=== PATIENT | male | born 1970 | race Caucasian/White ===

== ENCOUNTER 2017-04-28 20:20 | Emergency (ER) | payer OTHER ==
[2017-04-28 20:35] VITALS: BP 133/84
[2017-04-28] MEDS ORDERED: cefTRIAXone VIAL(*) 1,000 MG VIAL IM ONE (20:55)
[2017-04-28] MEDS ORDERED: Lidocaine 1% MPF* 2 ML VIAL ONE (21:01)
--- NOTE | 2017-04-28 21:01 | UC ---
Skin Complaint HPI - HPI Summary HPI Summary: pt presents with c/o of right lower leg tenderness, erythema and swelling. Pt has history of "chronic" cellulitis X 5 years. Pt states that he has "flare ups ' of cellulitis and states he is having one now. - History of Current Complaint Chief Complaint: UCLowerExtremity Time Seen by Provider: 04/28/17 20:45 Stated Complaint: RIGHT LEG COMPLAINT Hx Obtained From: Patient Onset/Duration: Gradual Onset, Lasting Weeks - 4-5 weeks Skin Exposure Onset/Duration: Weeks Ago - 4-5 weeks Timing: Constant Onset Severity: Mild Current Severity: Moderate Location: Discrete - right lower leg, below knee, Character: Swelling, Redness, Painful Aggravating: Touch Alleviating: Other - antibiotics Associated Signs & Symptoms: Positive: Tenderness - Allergy/Home Medications Allergies/Adverse Reactions: Allergies Allergy/AdvReac Type Severity Reaction Status Date / Time No Known Allergies Allergy Verified 04/28/17 20:36 Home Medications: Home Medications Aspirin [Aspirin 81 MG TAB] 81 mg PO BEDTIME 04/28/17 [History Confirmed ] Omeprazole CAP* [Prilosec CAP* 20 MG] 20 mg PO BEDTIME 04/28/17 [History Confirmed 04/28/17] Review of Systems Constitutional: Negative Skin: Other - erythema, tenderness, swelling Eyes: Negative ENT: Negative Respiratory: Negative Cardiovascular: Negative Gastrointestinal: Negative Genitourinary: Negative Motor: Other - tenderness with ambulation, generalized, Neurovascular: Negative Musculoskeletal: Edema - right lower leg. non pitting, Neurological: Negative Psychological: Negative All Other Systems Reviewed And Are Negative: Yes PMH/Surg Hx/FS Hx/Imm Hx Previously Healthy: Yes - Surgical History Surgical History: Yes Surgery Procedure, Year, and Place: BOIL REMOVAL EARLY ; FEBRUARY 2015- LEFT WRIST PROXIMAL ROW CARPECTOMY- SCAPHOID, LUNATE & TRIQUETRUM WERE SURGICALLY REMOVED - Family History Known Family History: Positive: Cardiac Disease - Social History Lives: With Family Alcohol Use: Weekly Alcohol Amount: 1/WEEK Substance Use Type: None Smoking Status (MU): Never Smoked Tobacco Physical Exam Triage Information Reviewed: Yes Appearance: Well-Appearing Vital Signs: Initial Vital Signs Temp 98.6 F 04/28/17 20:28 Pulse 104 04/28/17 20:28 Resp 18 07/03/17 20:28 BP 133/84 04/28/17 20:28 Pulse Ox 97 04/28/17 20:28 Eye Exam: Normal Neck exam: Normal Respiratory Exam: Normal Respiratory: Positive: No respiratory distress Musculoskeletal Exam: Other Musculoskeletal: Positive: Edema @ - right lower extremity, below knee, generalized erythema, non streaking, right lower leg measure 18. inches, Left lower leg, measured 16.5 inches Neurological Exam: Normal Psychological Exam: Normal Skin Exam: Other - erythema, right lower extremity, below knee, generalized, Course/Dx - Course Course Of Treatment: I discussed with the pt the need to monitor for any worsening symptoms including but not limited to erythema, tenderness, edema, fever, chills, weeping and if the symptoms wrosen in the next 24-48 hours then the pt must seek care at the closest healthcare facility as he has failed outpatient therapy. Pt verbalized understanding and agreedt o plan of care. - Differential Diagnoses - Skin Complaint Differential Diagnoses: Cellulitis, Other - DVT - Diagnoses Provider Diagnoses: cellulitis Discharge - Discharge Plan Condition: Stable Disposition: HOME Prescriptions: Cephalexin CAP* [Keflex 500 CAP*] 500 mg PO QID #40 cap Patient Education Materials: Cellulitis (ED) Referrals: Jaylyn Stanton MD [Primary Care Provider] - 2 Days Additional Instructions: Please monitor your symptoms for worsening of infection in the next 24-48 hours. If you have any worsening of symptoms you are to seek medical care immediately at the closest Emergency Room.
== END 2017-04-28 21:33 | disposition home or self-care (01) ==
LOC: UCCORT 20:20
DX: L03.115 Cellulitis of right lower limb (principal)
CPT/HCPCS: 96372; 99212; G0463; J0696

== ENCOUNTER 2017-06-16 12:32 | Emergency (ER) | payer OTHER ==
[2017-06-16 12:40] VITALS: BP 143/70
--- NOTE | 2017-06-16 13:19 | UC ---
Truncal Trauma HPI - HPI Summary HPI Summary: This is a 47 yo gentleman with HTN who presented with c/o L rib pain. 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 He did not lose consciousness or hit his head. He has had persistent pain since the injury. No SOB. No cough. - History Of Current Complaint Chief Complaint: UCChestPain Stated Complaint: LEFT RIB PAIN - Allergies/Home Medications Allergies/Adverse Reactions: Allergies Allergy/AdvReac Type Severity Reaction Status Date / Time No Known Allergies Allergy Verified 06/16/17 12:40 PMH/Surg Hx/FS Hx/Imm Hx Previously Healthy: No Cardiovascular History: Hypertension - Surgical History Surgical History: Yes Surgery Procedure, Year, and Place: BOIL REMOVAL EARLY . FEBRUARY 2015- LEFT WRIST (PROXIMAL ROW CARPECTOMY- SCAPHOID, LUNATE & TRIQUETRUM WERE SURGICALLY REMOVED). April 2017 - Right wrist pinning - Family History Known Family History: Positive: Cardiac Disease - Social History Alcohol Use: Weekly Alcohol Amount: 1/WEEK Substance Use Type: None Smoking Status (MU): Never Smoked Tobacco Review of Systems Constitutional: Negative Skin: Negative Eyes: Negative ENT: Negative Respiratory: Negative Cardiovascular: Negative Gastrointestinal: Negative Genitourinary: Negative Motor: Negative Neurovascular: Negative Musculoskeletal: Arthralgia Neurological: Negative Psychological: Negative All Other Systems Reviewed And Are Negative: Yes Physical Exam Triage Information Reviewed: Yes Appearance: Well-Appearing Vital Signs: Initial Vital Signs Temp 98.5 F 06/16/17 12:36 Pulse 99 06/16/17 12:36 Resp 16 06/16/17 12:36 BP 143/70 06/16/17 12:36 Pulse Ox 97 06/16/17 12:36 Vital Signs Reviewed: Yes Neck: Positive: Supple, Nontender, No Lymphadenopathy Respiratory: Positive: Lungs clear, Normal breath sounds. Negative: Chest non- tender - TTP along anterior axillary line near 9th rib Diagnostics - Laboratory Diagnostic Studies Completed/Ordered: XR chest and ribs - Non-displaced lateral 8th rib fx, no pneumothorax Truncal Trauma Course/Dx - Course Course Of Treatment: This is a 47 yo male with multiple medical problems who presented with c/o L rib pain after an injury 4 days ago. XR demonstrates non- displaced 8th rib fx - Differential Dx/Diagnosis Differential Diagnosis/HQI/PQRI: Chest Wall Contusion, Pneumothorax, Rib Fracture Provider Diagnoses: 1. Non-displaced rib fracture, L 8th Discharge - Discharge Plan Condition: Stable Disposition: HOME Prescriptions: oxyCODONE/Acetamin 10/325(NF) [Percocet 10/325 (NF)] 1 tab PO Q6H PRN #20 tab MDD 4 tabs PRN Reason: Pain Patient Education Materials: Rib Fracture (ED) Referrals: Salome Rosales PA [Primary Care Provider] - If Needed Additional Instructions: Activity: Avoid heavy lifting Instructions: 1. Use pain medication as directed, do not drive, consume alcohol or operate other heavy machinery with the medication 2. Expect the pain to last for several weeks
--- NOTE | 2017-06-16 13:59 | RAD ---
Indication: LEFT anterior axillary line ninth rib level pain following injury 4 days ago. Comparison: No relevant prior exams available on the [facility] for comparison. Technique: PA chest and 3 view LEFT unilateral rib series obtained. Report: Clear lungs and pleural spaces. Negative for pneumothorax. The heart, pulmonary vasculature, and mediastinal contours are unremarkable. Suggestion of a nondisplaced fracture at the anterolateral LEFT eighth rib corresponding with the general region of clinical concern. No additional rib fractures evident. IMPRESSION: Suggestion of nondisplaced fracture at the anterolateral segment of the LEFT eighth rib. Negative for pleural effusion or pneumothorax.
== END 2017-06-16 14:29 | disposition home or self-care (01) ==
LOC: UCCORT 12:32
DX: S22.32XA Fracture of one rib, left side, initial encounter for closed fracture (principal); W01.198A Fall on same level from slipping, tripping and stumbling with subsequent striking against other object, initial encounter; Y93.9 Activity, unspecified; Y92.89 Other specified places as the place of occurrence of the external cause; I10 Essential (primary) hypertension
CPT/HCPCS: 99211; G0463

== ENCOUNTER 2018-04-06 05:59 | Day surgery (SDC) | payer BC ==
[2018-04-06] MEDS ORDERED: Buffered Lidocaine 0.9% SYRIN* 5 ML/SYR SYRINGE INTRADERM ONE (06:00)
[2018-04-06] MEDS ORDERED: Dexamethasone IV* 4 MG/ML 1 ML (4 MG) IV SLOW PU ONE (06:00)
[2018-04-06] MEDS ORDERED: Famotidine IV* 10 MG/ML 2 ML (20 mg) IV ONE (06:00)
[2018-04-06] MEDS ORDERED: Dexamethasone IV* 4 MG/ML 1 ML (4 MG) ONE (06:04)
[2018-04-06] MEDS ORDERED: Famotidine IV* 10 MG/ML 2 ML (20 mg) ONE (06:04)
[2018-04-06] MEDS ORDERED: fentaNYL* 50 MCG/ML 2 ML VIAL (100 MCG VIAL) IV PRN (07:08)
[2018-04-06] MEDS ORDERED: Naloxone* 0.4 MG/ML 1 ML VIAL IV PRN (07:08)
[2018-04-06] MEDS ORDERED: Ondansetron ODT TAB* 4 MG PO PRN (07:08)
[2018-04-06] MEDS ORDERED: HYDROmorphone INJ* 1 MG/ML CARPUJECT SYRINGE IV PRN (07:08)
[2018-04-06] MEDS ORDERED: KETAMINE HCL* 50 MG/ML 10 ML VIAL ONE (07:22)
[2018-04-06] MEDS ORDERED: fentaNYL* 50 MCG/ML 2 ML VIAL (100 MCG VIAL) ONE ×2 (07:22→08:26)
[2018-04-06] MEDS ORDERED: Midazolam* 1 MG/ML 2 ML VIAL (2 MG) ONE (07:23)
[2018-04-06] MEDS ORDERED: Phenylephrine INJ* 10 MG/ML 1 ML VIAL (10 MG) ONE (07:49)
[2018-04-06] MEDS ORDERED: Bupivacaine 0.25% SDV* 30 ML ONE (08:26)
[2018-04-06 09:33] VITALS: BP 129/71
--- NOTE | 2018-04-06 17:11 | OP ---
DATE OF OPERATION: 04/06/18 - [facility] DATE OF : 66 SURGEON: Luis Nicolas MD. TECHNICAL SERVICES MANAGER: KATALINA Alexander ANESTHESIOLOGIST: Dr. Castaneda. ANESTHESIA: General. 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 OPERATIVE PROCEDURE: Arthrotomy of right wrist for synovial soft tissue cultures as well as distal radius and capitate bone cultures and specimens for permanent pathology. INDICATIONS: JoseM iguel has had the aforementioned surgeries. Unfortunately, the wrist has rapidly degenerated. He needs a wrist fusion to get him out of pain; however, I want to make sure that it is not infected prior to doing the wrist fusion surgery. I think it is a definite possibility given the fact that he has had such rapid degeneration and he has a PRC on the left that has done well for many years. He understood the risks and benefits, he wants to proceed. ESTIMATED BLOOD LOSS: 2 mL. COMPLICATIONS: None. FINDINGS: See above and below. DESCRIPTION OF PROCEDURE: Jose Miguel was seen in the preoperative holding area. The correct site, side, and procedure were identified. We came back to the operating room, the arm was prepped and draped in the usual fashion. A time- out was performed. The arm was exsanguinated with the Esmarch and the tourniquet inflated to 275 mmHg. I reopened his dorsal incision, full-thickness flaps were raised off the extensor retinaculum. The retinaculum was incised. The fourth dorsal compartment tendons were retracted ulnarly and a longitudinal arthrotomy was made. Abundant synovial tissue immediately protruded. This was excised and sent off as a specimen. I then took the curette and obtained bone cultures from the distal radius and then from the proximal pole of the capitate. I also sent specimens for permanent pathology. The cultures were sent for aerobic, anaerobic, fungal, and mycobacterial. The arthrotomy was then closed with 4-0 Prolene suture. The retinaculum was closed with 4-0 Prolene suture. The EPL tendon was already transposed. Skin was closed with 4-0 nylon suture. A short- arm splint was applied. He was woken up and taken to the recovery room in stable condition. [id number]/[facility] #: [id number] KATHLEEN
== END 2018-04-06 12:26 | disposition home or self-care (01) ==
LOC: OR 05:59
PROVIDERS: ATTEND Orthopaedic Surgery Hand Surgery
DX: M24.131 Other articular cartilage disorders, right wrist (principal); M19.031 Primary osteoarthritis, right wrist; I10 Essential (primary) hypertension; Z68.42 Body mass index [BMI] 45.0-49.9, adult; K21.9 Gastro-esophageal reflux disease without esophagitis; F32.9 Major depressive disorder, single episode, unspecified; G47.33 Obstructive sleep apnea (adult) (pediatric)
CPT/HCPCS: 87070; 87073; 87102; 87116; 87205; 87206; 88304; 88305; 88311; J1100; J2250; J3010

== ENCOUNTER 2018-05-04 06:15 | Day surgery (SDC) | payer BC ==
[~2018-05-04 06:15] MED LIST: Buffered Lidocaine 0.9% SYRIN* 5 ML/SYR SYRINGE INTRADERM ONE; Dexamethasone IV* 4 MG/ML 1 ML (4 MG) IV SLOW PU ONE; Famotidine IV* 10 MG/ML 2 ML (20 mg) IV ONE
[2018-05-04] MEDS ORDERED: Dexamethasone IV* 4 MG/ML 1 ML (4 MG) ONE (06:58)
[2018-05-04] MEDS ORDERED: Buffered Lidocaine 0.9% SYRIN* 5 ML/SYR SYRINGE ONE (06:58)
[2018-05-04] MEDS ORDERED: ceFAZolin 2 GM PREMIX (*) 2 GM/50 ML BAG IVPB ONE (06:58)
[2018-05-04] MEDS ORDERED: ceFAZolin 1 GM in Dextrose (*) 1 GM/50 ML BAG IVPB ONE (06:58)
[2018-05-04] MEDS ORDERED: Famotidine IV* 10 MG/ML 2 ML (20 mg) ONE (06:58)
[2018-05-04] MEDS ORDERED: Bupivacaine 0.5% W/EPI SDV* 10 ML VIAL INJ ONE (07:12)
[2018-05-04] MEDS ORDERED: Bupivacaine 0.5% PF 10 ML VIAL INJ ONE (07:14)
[2018-05-04] MEDS ORDERED: Midazolam* 1 MG/ML 2 ML VIAL (2 MG) ONE (07:37)
[2018-05-04] MEDS ORDERED: fentaNYL* 50 MCG/ML 2 ML VIAL (100 MCG VIAL) ONE ×5 (07:37→12:13)
[2018-05-04] MEDS ORDERED: Metoclopramide IV* 5 MG/ML 2 ML VIAL IV PRN (08:59)
[2018-05-04] MEDS ORDERED: Naloxone* 0.4 MG/ML 1 ML VIAL IV PRN (08:59)
[2018-05-04] MEDS ORDERED: Ondansetron INJ* 2 MG/ML VIAL ONE (10:27)
[2018-05-04] MEDS ORDERED: Ketorolac INJ* 30 MG/ML 1 ML VIAL ONE (10:27)
[2018-05-04] MEDS ORDERED: Lidocaine 2% PF * 5 ML VIAL ONE (10:27)
[2018-05-04] MEDS ORDERED: Phenylephrine INJ* 10 MG/ML 1 ML VIAL (10 MG) ONE (10:27)
[2018-05-04] MEDS ORDERED: Propofol* 10 MG/ML 20 ML BTL IV PUSH ONE (10:27)
[2018-05-04] MEDS: fentaNYL* 50 MCG/ML 2 ML VIAL (100 MCG VIAL) IV PRN ×3 (12:03→12:20)
[2018-05-04] MEDS ORDERED: HYDROmorphone INJ* 0.5 MG/0.5 ML SYRINGE ONE ×2 (12:14→12:54)
[2018-05-04] MEDS: HYDROmorphone INJ* 0.5 MG/0.5 ML SYRINGE IV PRN ×2 (12:15→12:54)
[2018-05-04] MEDS ORDERED: HYDROcodone/ACETAMIN 5-325 MG* 1 TAB ONE (12:31)
[2018-05-04 13:11] VITALS: BP 154/90
--- NOTE | 2018-05-13 09:05 | OP ---
DATE OF OPERATION: 05/04/18 - [facility] DATE OF : 66 SURGEON: Luis Pinedo MD ANESTHESIA: General. PRE-OP DIAGNOSIS: Extensive right wrist degeneration, status post prior attempted scapholunate ligament repair, which was then converted to a proximal carpectomy. POST-OP DIAGNOSIS: Extensive right wrist degeneration, status post prior attempted scapholunate ligament repair, which was then converted to proximal carpectomy. OPERATIVE PROCEDURE: Right total wrist fusion with autogenous right as well as left distal radius cortical cancellous as well as cancellous bone graft. EBL: 5 mL. COMPLICATIONS: None. FINDINGS: See above and elbow. INDICATIONS: Jose Miguel is 47. He has had the prior attempted scapholunate repair with his proximal carpectomy. He had a proximal carpectomy on the left and that has done very well, that was done many years ago; the one on the right has rapidly degenerated, the surgery was on 07/17/17, done elsewhere. He is having tremendous amount of pain. Given the rapid degeneration, I had taken cultures and a biopsy just to make sure that nothing was infected, especially given his 2 prior surgeries. These have all come back as negative for any infection. I told him that the only thing really left to do would be a total wrist fusion. Given the amount of bone loss, I thought we would need some cortical cancellous strip grafting as well abundant cancellous graft. I had talked to him about doing an iliac crest bone grafting versus taking bone graft from the contralateral distal radius in addition to the bone graft I would be able to get from the distal radius on the right. I told him that I favored doing the distal radius bone graft as I thought we would be able to get enough, and the bone graft site does not morbidity, then the iliac crest bone graft would help. He understands there is a risk of infection with this surgery. There is a risk of fracture at the left bone graft site. There is a risk of nonunion at the fusion site, which would necessitate revision surgery. He understands all of these complications and other potential complications and he wants to proceed with surgery. DESCRIPTION OF PROCEDURE: Jose Miguel was seen in the preoperative holding area. The correct side, site, and the procedures were identified. We came back to the operating room. The arm was prepped and draped in the usual fashion after anesthesia was induced. A time-out was performed. Both arms have been prepped out. The right arm was exsanguinated with the Esmarch and the tourniquet inflated to 250 mmHg. I utilized Jose Miguel's prior dorsal wrist incision, extended this little bit proximally and distally. Dissection was carried down. Full- thickness flaps were raised off the extensor retinaculum. I went through the prior suture line where it had closed the retinaculum previously. The subperiosteal dissection exposed the dorsal wrist joint. There was abundant synovial tissue; this was all excised with the rongeur. I continued the exposure on the dissection until I had a good view of the proximal capitate and the distal radius. All of the cystic lesions in the bone were curetted out until nothing but bone remained. The capitate had been sitting on the volar aspect of the distal radius and had eroded into the volar aspect of the distal radius. I brought the capitate back up and made it articulate with the dorsal distal radius. I then used the winsome along with copious irrigation to take off the eburnated sclerotic bone until I had good bleeding bone in the side of my distal radius. I also used the rongeur and the winsome until I had what looked like healthy bleeding bone of what remained of the proximal pole of the capitate. At this point, I had a gap of about 1 cm between the 2 surfaces. I decided to harvest a cortical cancellous bone graft. I brought in my plate and I positioned it provisionally where I thought it would reside on the dorsal ulnar aspect of the distal radius. I then came radial and used a K-wire to ciarra out a rectangular block of cortical cancellous bone. The osteotome was used to complete the osteotomy through the cortical bone and then this was used to harvest a piece of cortical cancellous graft. This was trimmed to length and placed as an interposition between the capitate and the distal radius. I then packed the wound and deflated the tourniquet on the right. I went to the left side where I exsanguinated the arm with the Esmarch and the tourniquet was inflated. I made an incision over the dorsum of the left wrist utilizing the proximal aspect of the prior dorsal wrist incision where he had had the proximal row carpectomy. Dissection was carried down in full thickness, subperiosteal flaps raised off of the dorsal distal radius just proximal to the extensor retinaculum. In similar fashion, I used a 0.045 K-wire to ciarra out my rectangular shaped cortical cancellous graft. I then used the osteotome then to complete the corticotomy and to harvest the graft. This was handed off onto the back table. I then harvested an large amount of cancellous graft from the remainder of the distal radius. At this point, I irrigated out this wound, and the skin was closed with 4- 0 nylon suture. Wrist was loosely wrapped and the tourniquet was deflated. I again exsanguinated the right arm with the Esmarch and the tourniquet was re- inflated. I irrigated out everything until it was looking nice and clean again. I trimmed my additional piece of cortical cancellous graft and placed it again along with the other pieces in interposition between the proximal fold of the capitate and the distal radius. This provided a very nice compression fit and both pieces were holding nicely. I then took all of my cancellous graft and I packed it all along the fusion site until it was packed in very tightly. At this point, I brought in my Synthes dorsal fusion plate. I initially had selected a straight plate and had put a little bend on it, but I went ahead and changed to the soft Synthes small bend plate as it does provide a little bit better fit. I secured this with 1 screw proximally and 1 screw distally. I checked some fluoroscopic images and everything was looking good, so I placed a couple of more screws distally in the 3rd metacarpal. I then placed 2 screws in compression mode sequentially proximally until I had it even more tightly compressed. At this point, I thought it was maximally compressed. I then there placed another screw in the compression mode, this was a lag screw, it was placed in usual fashion. Everything was looking good, so I gently irrigated out the wound. The dorsal capsule and periosteum was closed over the plate to the extent possible. The extensor retinaculum was closed with some 4- 0 Prolene suture. After the wrist was fully applied and fixation very stable, I closed the capsule and the periosteum over the plate to the extent possible. The extensor retinaculum was closed with 4-0 Prolene. The EPL tendon had already been transposed. The skin was closed with 4-0 nylon. The wound was dressed with Xeroform, 4x4's, sterile Webril and then cockup wrist splint were applied to both the right and the left wrist. The tourniquet was deflated on the right and the hand pinked up immediately. He was then woken up and taken to recovery room in stable condition. [id number]/[facility] #: [id number] KATHLEEN
== END 2018-05-04 13:13 | disposition home or self-care (01) ==
LOC: OR 06:15
PROVIDERS: ATTEND Orthopaedic Surgery Hand Surgery
DX: M24.131 Other articular cartilage disorders, right wrist (principal); E66.01 Morbid (severe) obesity due to excess calories; Z68.42 Body mass index [BMI] 45.0-49.9, adult; I10 Essential (primary) hypertension; K21.9 Gastro-esophageal reflux disease without esophagitis; G47.33 Obstructive sleep apnea (adult) (pediatric); F32.9 Major depressive disorder, single episode, unspecified; G25.81 Restless legs syndrome; M19.90 Unspecified osteoarthritis, unspecified site
CPT/HCPCS: C1713; C1776; J0690; J1100; J1170; J1885; J2250; J2405; J2704; J3010